=== PATIENT | male | born 1960 | race Caucasian/White ===

== ENCOUNTER 2022-09-08 04:10 | Day surgery (SDC) | payer BC ==
[2022-09-04 10:29] VITALS: BMI 25.7
[2022-09-08] MEDS ORDERED: MIDAZOLAM HCL 2 MG/2 ML SINGLE DOSE VIAL ONE (09:28)
[2022-09-08] MEDS ORDERED: ceFAZolin 2 GRAM PREMIX BAG IVPB ONE (09:37)
[2022-09-08] MEDS ORDERED: ELECTROLYTE-148 SOLN 1,000 ML IV SCH (09:45)
[2022-09-08] MEDS ORDERED: ONDANSETRON 4 MG/2 ML VIAL ONE (10:20)
[2022-09-08] MEDS ORDERED: ceFAZolin SODIUM 1 GM VIAL ONE ×2 (10:20)
[2022-09-08 11:21] VITALS: BP 132/76; PULSE 55; RESP 18; TEMP 97.6
== END 2022-09-08 11:16 | disposition home or self-care (01) ==
LOC: JASU-SURG 04:10
PROVIDERS: ATTEND Urology
PROC: 0TF3XZZ Fragmentation in Right Kidney Pelvis, External Approach (ICD-10-PCS; principal; 2022-09-08 09:00)
DX: N20.0 Calculus of kidney (principal)